=== PATIENT | female | born 1965 | race Caucasian/White ===

== ENCOUNTER → 2016-09-27 | Outpatient (CLI) | payer OTHER ==
[~2016-09-27] MED LIST: ALPR1TAB2 PO; ASCO10004 PO; CALC-192 PO; CARI350T PO; CHOL400C11 PO; MELA1TAB22 PO; METH750T2 PO; OMEG1CAP23 PO; OXYC5TAB3 PO; PRED20TA PO; PROG1.3G TP; TEST1.25 TP; TURM500C7 PO
== END | disposition home or self-care (01) ==
LOC: CFH 08:47
PROVIDERS: ATTEND Surgery
DX: Z12.31 Encounter for screening mammogram for malignant neoplasm of breast (principal); Z15.01 Genetic susceptibility to malignant neoplasm of breast; Z80.3 Family history of malignant neoplasm of breast
CPT/HCPCS: G0202

== ENCOUNTER 2017-02-03 13:45 | Emergency (ER) | payer OTHER ==
[~2017-02-03] VITALS: Ht 175.3 cm; Wt 65.9 kg
[2017-02-03] MEDS ORDERED: SODIUM CHLORIDE 0.9% 1,000ML IVBOLUS ONE (15:00)
[2017-02-03] MEDS ORDERED: ONDANSETRON 2MG/ML, 2ML IVPush ONE (15:00)
[2017-02-03] MEDS ORDERED: SODIUM CHLORIDE 0.9% 1,000 ML IV ONE (15:00)
[2017-02-03] MEDS ORDERED: HYDROmorphone 2 MG/ML, 1ML ONE ×2 (15:13→16:00)
[2017-02-03] MEDS ORDERED: ONDANSETRON 2MG/ML, 2ML ONE (15:13)
[2017-02-03] MEDS: HYDROmorphone 1 MG/ML, 1ML IVPush PRN ×2 (15:17→16:05)
[2017-02-03 15:25] LABS: HEMATOCRIT 45.7 % (34.6-47.8); HEMOGLOBIN 15.6 g/dL (11.7-16.4); WHITE BLOOD COUNT 7.8 x10^3/uL (3.4-10)
[2017-02-03 15:37] LABS: ASPARTATE AMINO TRANSFERASE 15 U/L (15-37); BLOOD UREA NITROGEN 15 mg/dL (7-18)
[2017-02-03] MEDS ORDERED: ZOLP6.253 PO (15:47)
[2017-02-03 16:05] VITALS: BP 132/60
== END 2017-02-03 17:35 | disposition home or self-care (01) ==
LOC: ED 16:36
DX: R10.2 Pelvic and perineal pain (principal); D25.9 Leiomyoma of uterus, unspecified
CPT/HCPCS: 36415; 80053; 81001; 83690; 84703; 85025; 87086; 93975; 96361; 96374; 96375; 96376; 99285; J1170; J2405; J7030

== ENCOUNTER → 2017-03-28 | Outpatient (CLI) | payer OTHER ==
[~2017-03-28] MED LIST changes: +GADOBUTROL 10 MMOL/10 ML VIAL ONE; +ZOLP6.253 PO
== END | disposition home or self-care (01) ==
LOC: CFH 09:36
PROVIDERS: ATTEND Surgery
DX: R92.2 Inconclusive mammogram (principal); K76.89 Other specified diseases of liver; Z80.3 Family history of malignant neoplasm of breast
CPT/HCPCS: A9585; C8908

== ENCOUNTER 2017-04-11 06:00 | Day surgery (SDC) | payer OTHER ==
[~2017-04-11] VITALS: Ht 175.3 cm; Wt 63.0 kg
[~2017-04-11 06:00] MED LIST changes: -GADOBUTROL 10 MMOL/10 ML VIAL ONE
[2017-04-11 06:48] VITALS: BP 137/88
[2017-04-11] MEDS ORDERED: SODIUM CHLORIDE 0.9% 1,000 ML IV SCH (06:51)
[2017-04-11] MEDS ORDERED: FLUMAZENIL 0.1 MG/1 ML, 5ML ONE (08:10)
[2017-04-11] MEDS ORDERED: NALOXONE 1 MG/ML, 2ML ONE (08:10)
[2017-04-11] MEDS ORDERED: MIDAZOLAM 1 MG/ML, 2ML ONE ×2 (08:10)
[2017-04-11] MEDS ORDERED: FENTANYL PF 100 MCG/2ML ONE (08:10)
== END 2017-04-11 12:20 ==
LOC: OUT 06:00
PROVIDERS: ATTEND Surgery
DX: J98.4 Other disorders of lung (principal); Z72.89 Other problems related to lifestyle
CPT/HCPCS: 32405; 71045; 77012; 88305; 99156; 99157; C2613; J2250; J3010; J2310

== ENCOUNTER 2017-05-28 09:13 | Observation (INO) | payer OTHER ==
[2017-05-27 10:15] VITALS: BP 113/78
[2017-05-27 10:43] LABS: BASOPHILS # (AUTO) 0.06 x10^3/uL (0-0.1); BASOPHILS % (AUTO) 1 % (0-1); EOSINOPHILS # (AUTO) 0.28 x10^3/uL (0-0.4); EOSINOPHILS % (AUTO) 6 % (1-7); LYMPHOCYTES # (AUTO) 1.36 x10^3/uL (1-3.4); LYMPHOCYTES % (AUTO) 30 % (22-44); MD NO; MEAN CORPUSCULAR HEMOGLOBIN 31.4 pg (27.0-34.8); MEAN CORPUSCULAR HGB CONC 34.3 g/dL (32.4-35.8); MEAN CORPUSCULAR VOLUME 91.4 fL (80-100); MEAN PLATELET VOLUME 7.8 fL (7.4-10.4); MONOCYTES # (AUTO) 0.35 x10^3/uL (0.2-0.8); MONOCYTES % (AUTO) 8 % (2-9); NEUTROPHILS # (AUTO) 2.44 x10^3/uL (1.8-6.8); NEUTROPHILS % (AUTO) 54 % (42-75); PLATELET COUNT 222 x10^3/uL (130-400); RED BLOOD COUNT 4.66 x10^6/uL (3.82-5.3); RED CELL DISTRIBUTION WIDTH 12.6 % (9.6-15.2)
[2017-05-27 10:51] LABS: ALANINE AMINOTRANSFERASE 34 U/L (12-78); ANION GAP 8 mmol/L (5-15); CALCIUM 8.9 mg/dL (8.5-10.1); CHLORIDE 106 mmol/L (98-107); CREATININE 0.96 mg/dL (0.55-1.02)
[2017-05-27 10:53] LABS: ALKALINE PHOSPHATASE 64 U/L (45-117); BILIRUBIN,TOTAL 0.6 mg/dL (0.2-1.0); TOTAL PROTEIN 7.6 g/dL (6.4-8.2)
[~2017-05-28] VITALS: Ht 175.3 cm; Wt 66.5 kg
[~2017-05-28 09:13] MED LIST changes: +BIOT1CAP3 PO; +BLACK SEED PO; +CAT PO; +FLAX1CAP PO; +MAGN250T8 PO; +VITA1TAB19 PO; +[UNRECOGNIZED DRUG - OTHER] PO
[2017-05-28] MEDS: SODIUM CHLORIDE 0.9% 1,000 ML IV SCH ×2 (09:30→17:30)
[2017-05-28] MEDS ORDERED: CEFAZOLIN PMX 1GM/50ML 50 ML IVPB ONE (09:30)
[2017-05-28] MEDS ORDERED: FENTANYL PF 100 MCG/2ML ONE ×2 (09:56→10:38)
[2017-05-28] MEDS ORDERED: LIDOCAINE-MPF 2% ,5ML ONE ×2 (09:56→10:35)
[2017-05-28] MEDS ORDERED: CEFAZOLIN 1,000 MG ONE (09:56)
[2017-05-28] MEDS ORDERED: CEFAZOLIN PMX 1GM/50ML 50 ML ONE (09:56)
[2017-05-28] MEDS ORDERED: MIDAZOLAM 1 MG/ML, 2ML ONE ×3 (09:56→10:38)
[2017-05-28] MEDS ORDERED: DIPHENHYDRAMINE 50 MG/ML, 1ML ONE (10:06)
[2017-05-28] MEDS ORDERED: CEFAZOLIN PMX 1GM/50ML 50 ML IVPB SCH (11:30)
[2017-05-28] MEDS ORDERED: ZOLPIDEM 5MG TABLET PO PRN (11:30)
[2017-05-28 12:27] VITALS: BP 134/81
[2017-05-28] MEDS: HYDROcodone/APAP 5/325 TABLET PO PRN ×3 (13:24→22:36)
[2017-05-28] MEDS: CEFAZOLIN PMX 1GM/50ML 50 ML IVPB SCH (18:13)
[2017-05-28 18:47] VITALS: BP 125/76
[2017-05-28] MEDS: SODIUM CHLORIDE FLUSH 10ML SYR IVF SCH (21:00)
[2017-05-29] MEDS: SODIUM CHLORIDE 0.9% 1,000 ML IV SCH (01:30)
[2017-05-29 01:50] VITALS: BP 101/64
[2017-05-29] MEDS: CEFAZOLIN PMX 1GM/50ML 50 ML IVPB SCH ×2 (02:31→20:28)
[2017-05-29] MEDS: HYDROcodone/APAP 5/325 TABLET PO PRN ×4 (02:39→23:12)
[2017-05-29 07:20] VITALS: BP 109/69
[2017-05-29] MEDS ORDERED: HYDR-3240 PO (08:54)
[2017-05-29] MEDS: SODIUM CHLORIDE FLUSH 10ML SYR IVF SCH ×3 (09:00→20:27)
[2017-05-29] MEDS ORDERED: LIDOCAINE-MPF 2% ,5ML ONE ×2 (12:32→13:44)
[2017-05-29] MEDS ORDERED: DIPHENHYDRAMINE 50 MG/ML, 1ML ONE (12:32)
[2017-05-29] MEDS ORDERED: MIDAZOLAM 1 MG/ML, 2ML ONE (12:32)
[2017-05-29] MEDS ORDERED: FENTANYL PF 100 MCG/2ML ONE (12:32)
[2017-05-29] MEDS ORDERED: CEFAZOLIN PMX 1GM/50ML 50 ML ONE (12:32)
[2017-05-29] MEDS ORDERED: CEFAZOLIN 1,000 MG ONE (12:32)
[2017-05-29 13:05] VITALS: BP 123/80
[2017-05-29 20:06] VITALS: BP 97/54
[2017-05-30 01:40] VITALS: BP 127/81
[2017-05-30] MEDS: CEFAZOLIN PMX 1GM/50ML 50 ML IVPB SCH ×2 (04:52→11:17)
[2017-05-30 08:19] VITALS: BP 144/94
[2017-05-30] MEDS: HYDROcodone/APAP 5/325 TABLET PO PRN (08:28)
[2017-05-30] MEDS: SODIUM CHLORIDE FLUSH 10ML SYR IVF SCH (09:32)
== END 2017-05-30 12:40 | disposition home or self-care (01) ==
LOC: OUT 09:13 → ORIP 11:01 → 5SO 11:25 → DCLOUNGE 05-30 12:19
PROVIDERS: ADMIT Internal Medicine Cardiovascular Disease; ATTEND Internal Medicine Cardiovascular Disease
DX: I49.5 Sick sinus syndrome (principal); R00.1 Bradycardia, unspecified; R42 Dizziness and giddiness; E78.5 Hyperlipidemia, unspecified
CPT/HCPCS: 33208; 33215; 36415; 71045; 71046; 80053; 85025; 93005; 96365; 96375; 96376; 99156; 99157; C1779; C1785; C1892; G0378; J0690; J1200; J2250; J3010; J3490

== ENCOUNTER 2017-06-03 13:53 | Emergency (ER) | payer OTHER ==
[~2017-06-03] VITALS: Ht 175.3 cm; Wt 65.4 kg
[~2017-06-03 13:53] MED LIST changes: +HYDR-3240 PO
[2017-06-03] MEDS ORDERED: SODIUM CHLORIDE FLUSH 10ML SYR IVF ONE (14:30)
[2017-06-03 14:58] LABS: BASOPHILS # (AUTO) 0.06 x10^3/uL (0-0.1); BASOPHILS % (AUTO) 1 % (0-1); EOSINOPHILS # (AUTO) 0.34 x10^3/uL (0-0.4); EOSINOPHILS % (AUTO) 6 % (1-7); LYMPHOCYTES # (AUTO) 1.68 x10^3/uL (1-3.4); LYMPHOCYTES % (AUTO) 29 % (22-44); MD NO; MEAN CORPUSCULAR HEMOGLOBIN 31.2 pg (27.0-34.8); MEAN CORPUSCULAR HGB CONC 34.5 g/dL (32.4-35.8); MEAN CORPUSCULAR VOLUME 90.4 fL (80-100); MEAN PLATELET VOLUME 7.5 fL (7.4-10.4); MONOCYTES # (AUTO) 0.36 x10^3/uL (0.2-0.8); MONOCYTES % (AUTO) 6 % (2-9); NEUTROPHILS # (AUTO) 3.38 x10^3/uL (1.8-6.8); NEUTROPHILS % (AUTO) 58 % (42-75); PLATELET COUNT 188 x10^3/uL (130-400); RED BLOOD COUNT 4.79 x10^6/uL (3.82-5.3); RED CELL DISTRIBUTION WIDTH 12.5 % (9.6-15.2)
[2017-06-03 15:08] LABS: ALANINE AMINOTRANSFERASE 36 U/L (12-78); ALBUMIN 4.1 g/dL (3.4-5.0); ANION GAP 7 mmol/L (5-15); CALCIUM 8.8 mg/dL (8.5-10.1); CHLORIDE 103 mmol/L (98-107); CREATININE 0.83 mg/dL (0.55-1.02)
[2017-06-03 15:10] LABS: INTERNATIONAL NORMALIZED RATIO 0.96 (0.93-1.1); PROTHROMBIN TIME 9.9 Seconds (9.6-11.5)
[2017-06-03 15:13] LABS: ALKALINE PHOSPHATASE 63 U/L (45-117); BILIRUBIN,TOTAL 0.4 mg/dL (0.2-1.0); TOTAL PROTEIN 8.1 g/dL (6.4-8.2); TROPONIN I < 0.015 ng/mL (0.000-0.045)
[2017-06-03 15:27] VITALS: BP 114/77
[2017-06-03 15:55] LABS: HCT (SEDRATE) 43.3 % (34.6-47.8)
== END 2017-06-03 17:16 | disposition home or self-care (01) ==
LOC: ED 15:01
DX: R07.89 Other chest pain (principal)
CPT/HCPCS: 36415; 71045; 80053; 84484; 85025; 85610; 85651; 93005; 93306; 99285

== ENCOUNTER → 2018-02-18 | Outpatient (CLI) | payer OTHER | END | disposition home or self-care (01) | LOC: RAD 08:09 | PROVIDERS: ATTEND Orthopaedic Surgery | DX: M25.461 Effusion, right knee (principal); M94.8X6 Other specified disorders of cartilage, lower leg ==

== ENCOUNTER 2018-05-01 07:59 | Outpatient (CLI) | payer OTHER | END 2018-05-01 23:59 | disposition home or self-care (01) | LOC: CFH 07:59 | PROVIDERS: ATTEND Surgery | DX: Z12.31 Encounter for screening mammogram for malignant neoplasm of breast (principal); Z80.3 Family history of malignant neoplasm of breast; Z95.0 Presence of cardiac pacemaker | CPT/HCPCS: 76377; 76642; 77063; 77067 ==

== ENCOUNTER → 2019-04-09 | Outpatient (CLI) | payer OTHER | END | disposition home or self-care (01) | LOC: CFH 13:54 | PROVIDERS: ATTEND Nurse Practitioner Family | DX: R91.8 Other nonspecific abnormal finding of lung field (principal) | CPT/HCPCS: 71250 ==

== ENCOUNTER → 2019-05-05 | Outpatient (CLI) | payer OTHER | END | disposition home or self-care (01) | LOC: CFH 12:10 | PROVIDERS: ATTEND Surgery | DX: Z12.31 Encounter for screening mammogram for malignant neoplasm of breast (principal); N64.59 Other signs and symptoms in breast; Z86.018 Personal history of other benign neoplasm; Z80.41 Family history of malignant neoplasm of ovary; Z80.3 Family history of malignant neoplasm of breast | CPT/HCPCS: 76641; 77063; 77067 ==

== ENCOUNTER → 2020-02-04 | Outpatient (CLI) | payer OTHER ==
[~2020-02-04] MED LIST changes: +ALBU8.5H8 INH; +ALPR2TAB95 PO; +ASCO100018 PO; -ASCO10004 PO; +DULO60CA7 PO; +ESTR42.58 TD; +LEVA15HF4 INH; +MONT10TA6 PO; +PROG100C16 PO; -ZOLP6.253 PO; +ZOLP6.255 PO; +testosterone cream
[2020-02-04 13:56] LABS: BASOPHILS % (AUTO) 1 % (0-1); EOSINOPHILS % (AUTO) 10 % (1-7); LYMPHOCYTES % (AUTO) 31 % (22-44); MEAN CORPUSCULAR HEMOGLOBIN 31.1 pg (27.0-34.8); MEAN CORPUSCULAR HGB CONC 33.6 g/dL (32.4-35.8); MEAN PLATELET VOLUME 8.2 fL (7.4-10.4); MONOCYTES % (AUTO) 8 % (2-9); NEUTROPHILS % (AUTO) 50 % (42-75); PLATELET COUNT 222 x10^3/uL (130-400); RED BLOOD COUNT 4.76 x10^6/uL (3.82-5.3); RED CELL DISTRIBUTION WIDTH 13.3 % (9.6-15.2)
[2020-02-04 14:01] LABS: MD NO
== END | disposition home or self-care (01) ==
LOC: STAR 12:23
PROVIDERS: ATTEND Surgery
DX: Z01.812 Encounter for preprocedural laboratory examination (principal); Z20.828 Contact with and (suspected) exposure to other viral communicable diseases; N63.20 Unspecified lump in the left breast, unspecified quadrant; N64.59 Other signs and symptoms in breast; Z80.41 Family history of malignant neoplasm of ovary; Z86.018 Personal history of other benign neoplasm
CPT/HCPCS: 85025; 87635; 93005

== ENCOUNTER 2020-02-10 11:23 | Day surgery (SDC) | payer OTHER ==
[~2020-02-10] VITALS: Ht 175.3 cm; Wt 68.0 kg
[~2020-02-10 11:23] MED LIST changes: +BUPIVACAINE/PF 0.25% ONE; +EPINEPHRINE 1 MG/ML, 1ML ONE
[2020-02-10] MEDS ORDERED: CHLORHEXIDINE 15 ML UDC MM STA (11:41)
[2020-02-10 11:59] VITALS: BP 154/96
[2020-02-10] MEDS ORDERED: LACTATED RINGERS 1,000 ML IV SCH (12:00)
[2020-02-10] MEDS ORDERED: BUPIVACAINE/PF 0.25% ONE (13:20)
[2020-02-10] MEDS ORDERED: MIDAZOLAM 1 MG/ML, 2ML ONE (13:24)
[2020-02-10] MEDS ORDERED: FENTANYL PF 250 MCG/5ML ONE (13:24)
[2020-02-10] MEDS ORDERED: PROPOFOL 50 ML ONE (13:24)
[2020-02-10] MEDS ORDERED: DEXAMETHASONE 4 MG/ML, 1ML ONE (13:47)
[2020-02-10] MEDS ORDERED: CEFAZOLIN 1,000 MG ONE (13:47)
[2020-02-10] MEDS ORDERED: ROCURONIUM 10 MG/ML,10ML ONE (13:47)
[2020-02-10] MEDS ORDERED: ONDANSETRON 2MG/ML, 2ML ONE (13:47)
[2020-02-10] MEDS ORDERED: INDOCYANINE GREEN 25 MG VIAL ONE (13:47)
[2020-02-10] MEDS ORDERED: HYDROmorphone 2 MG/ML, 1ML ONE (14:02)
[2020-02-10] MEDS ORDERED: GENTAMICIN 80 MG/2 ML IV ONE (14:04)
[2020-02-10] MEDS ORDERED: CEFAZOLIN 1,000 MG IVPB ONE (14:04)
[2020-02-10] MEDS ORDERED: BACITRACIN 50,000 UNIT IM ONE (14:04)
[2020-02-10] MEDS ORDERED: BUPIVACAINE/PF-EPI 0.25% 1:200K INFIL ONE (14:04)
[2020-02-10] MEDS ORDERED: PROMETHAZINE 25 MG/ML, 1ML IVPush PRN (14:30)
[2020-02-10] MEDS ORDERED: MEPERIDINE/PF 25MG/0.5ML IVPush PRN (14:30)
[2020-02-10] MEDS ORDERED: DIPHENHYDRAMINE 50 MG/ML, 1ML IVPush PRN (14:30)
[2020-02-10] MEDS ORDERED: LABETALOL 5MG/ML, 20ML IV PRN (14:30)
[2020-02-10] MEDS ORDERED: ONDANSETRON 2MG/ML, 2ML IVPush PRN (14:30)
[2020-02-10] MEDS ORDERED: OXYcodone 5 MG/5 ML ORAL.SOL UDC PO PRN (14:30)
[2020-02-10] MEDS ORDERED: ACETAMINOPHEN 325 MG TABLET PO PRN (14:30)
[2020-02-10] MEDS ORDERED: DIAZEPAM 5 MG/ML, 2ML IVPush PRN (14:30)
[2020-02-10] MEDS ORDERED: EPHEDRINE 50 MG/ML, 1ML IVPush PRN (14:30)
[2020-02-10] MEDS ORDERED: EPHEDRINE 50 MG/ML, 1ML IM PRN (14:30)
[2020-02-10] MEDS: FENTANYL PF 100 MCG/2ML IV PRN ×3 (17:35→17:45)
[2020-02-10] MEDS ORDERED: FENTANYL PF 100 MCG/2ML ONE (17:37)
[2020-02-10] MEDS ORDERED: OXYcodone 5 MG/5 ML ORAL.SOL UDC ONE (17:37)
[2020-02-10] MEDS ORDERED: HYDROmorphone 1 MG/ML, 1ML INJ ONE ×2 (18:04→18:56)
[2020-02-10] MEDS: HYDROmorphone 1 MG/ML, 1ML INJ IVPush PRN ×5 (18:09→18:50)
[2020-02-10] MEDS ORDERED: ACETAMINOPHEN 325 MG TABLET ONE (18:56)
== END 2020-02-10 20:30 | disposition home or self-care (01) ==
LOC: OUT 11:23
PROVIDERS: ATTEND Surgery
DX: Z15.01 Genetic susceptibility to malignant neoplasm of breast (principal); N60.82 Other benign mammary dysplasias of left breast; F41.9 Anxiety disorder, unspecified; J45.909 Unspecified asthma, uncomplicated; Z91.018 Allergy to other foods; Z88.1 Allergy status to other antibiotic agents; Z88.2 Allergy status to sulfonamides; Z98.890 Other specified postprocedural states; Z79.899 Other long term (current) drug therapy; Z72.89 Other problems related to lifestyle; Z82.49 Family history of ischemic heart disease and other diseases of the circulatory system
CPT/HCPCS: 19303; 19357; 38792; 88307; C1762; C1789; J0171; J0690; J1100; J1170; J1580; J2250; J2405; J2704; J3010; J7120

== ENCOUNTER 2020-02-26 13:30 | Day surgery (SDC) | payer OTHER ==
[~2020-02-26] VITALS: Ht 175.3 cm; Wt 66.3 kg
[~2020-02-26 13:30] MED LIST changes: -BUPIVACAINE/PF 0.25% ONE; -EPINEPHRINE 1 MG/ML, 1ML ONE
--- NOTE | 2020-02-26 14:13 | NUR ---
PT CAME IN CO OF RIGHT BREAST REDNESS, SWELLING AND PAIN. PT WILL BE GOING TO OR TODAY FOR DEBRIEDMENT. PT HAD A DOUBLE MASECTOMY FEB 09. PT RESTING IN [facility]. IV STARTED. IV FLUIDS INFUSING. PT ACCOMPANIED BY . WARM BLANKET PROVIDED
[2020-02-26 14:26] LABS: BASOPHILS % (AUTO) 1 % (0-1); EOSINOPHILS % (AUTO) 5 % (1-7); LYMPHOCYTES % (AUTO) 20 % (22-44); MEAN CORPUSCULAR HEMOGLOBIN 31.4 pg (27.0-34.8); MEAN PLATELET VOLUME 7.1 fL (7.4-10.4); MONOCYTES % (AUTO) 9 % (2-9); NEUTROPHILS % (AUTO) 65 % (42-75); PLATELET COUNT 306 x10^3/uL (130-400); RED BLOOD COUNT 4.35 x10^6/uL (3.82-5.3); RED CELL DISTRIBUTION WIDTH 13.2 % (9.6-15.2)
[2020-02-26 14:27] LABS: MD NO
[2020-02-26] MEDS ORDERED: SODIUM CHLORIDE FLUSH 10ML SYR IVF ONE (14:30)
[2020-02-26] MEDS ORDERED: SODIUM CHLORIDE 0.9% 1,000ML IVBOLUS ONE (14:30)
[2020-02-26 14:37] LABS: ALBUMIN 3.8 g/dL (3.4-5.0); ANION GAP 6 mmol/L (5-15); CHLORIDE 108 mmol/L (98-107); CREATININE 0.83 mg/dL (0.55-1.02)
--- NOTE | 2020-02-26 14:50 | NUR ---
PT RESTING IN [facility]. VSS. NAD. WEINER PROVIDED
[2020-02-26 15:50] VITALS: BP 149/82
[2020-02-26] MEDS ORDERED: MIDAZOLAM 1 MG/ML, 2ML ONE (18:07)
[2020-02-26] MEDS ORDERED: FENTANYL PF 100 MCG/2ML ONE ×2 (18:07→18:55)
[2020-02-26] MEDS ORDERED: HYDROmorphone 1 MG/ML, 1ML INJ IVPush PRN (18:30)
[2020-02-26] MEDS ORDERED: EPHEDRINE 50 MG/ML, 1ML IVPush PRN (18:30)
[2020-02-26] MEDS ORDERED: ACETAMINOPHEN 325 MG TABLET PO PRN (18:30)
[2020-02-26] MEDS ORDERED: PROMETHAZINE 25 MG/ML, 1ML IVPush PRN (18:30)
[2020-02-26] MEDS ORDERED: ONDANSETRON 2MG/ML, 2ML IVPush PRN (18:30)
[2020-02-26] MEDS ORDERED: OXYcodone 5 MG/5 ML ORAL.SOL UDC PO PRN (18:30)
[2020-02-26] MEDS ORDERED: FENTANYL PF 100 MCG/2ML IV PRN (18:30)
[2020-02-26] MEDS ORDERED: LABETALOL 5MG/ML, 20ML IV PRN (18:30)
[2020-02-26] MEDS ORDERED: hydrALAzine 20 MG/ML, 1ML IV PRN (18:30)
[2020-02-26] MEDS ORDERED: CEFAZOLIN 1,000 MG ONE (18:41)
[2020-02-26] MEDS ORDERED: PROPOFOL 10 MG/ML, 20ML ONE (18:41)
[2020-02-26] MEDS ORDERED: ONDANSETRON 2MG/ML, 2ML ONE (18:41)
[2020-02-26] MEDS ORDERED: SUCCINYLCHOLINE 20 MG/ML, 10ML ONE (18:41)
[2020-02-26] MEDS ORDERED: DEXAMETHASONE 4 MG/ML, 5ML ONE (18:42)
[2020-02-26] MEDS ORDERED: LIDOCAINE-MPF 2% ,5ML ONE (18:42)
[2020-02-26] MEDS ORDERED: KETOROLAC 30 MG/1 ML ONE (18:42)
[2020-02-26 20:00] VITALS: BP 130/81
[2020-02-26] MEDS ORDERED: CEPH-368 PO (20:45)
[2020-02-26 21:15] VITALS: BP 120/81
== END 2020-02-26 21:30 | disposition home or self-care (01) ==
LOC: ED 13:51 → UNDOADMIN 14:07 → EDIP 14:07 → 4NE 15:38 → EDIP 15:38 → OUT 19:00 → UNDODISIN 21:30 → OUT 21:30
PROVIDERS: ATTEND Emergency Medicine
DX: Z15.01 Genetic susceptibility to malignant neoplasm of breast (principal); N64.1 Fat necrosis of breast; F41.9 Anxiety disorder, unspecified; F32.9 Major depressive disorder, single episode, unspecified; Z20.822 Contact with and (suspected) exposure to COVID-19; Z79.899 Other long term (current) drug therapy; Z88.2 Allergy status to sulfonamides; Z88.8 Allergy status to other drugs, medicaments and biological substances; Z90.13 Acquired absence of bilateral breasts and nipples
CPT/HCPCS: 14301; 36415; 71045; 80048; 82040; 85025; 87635; 93005; 99285; J0330; J0690; J1100; J1885; J2250; J2405; J2704; J3010; J7030; G0378